=== PATIENT | female | born 1970 | race Two or more races ===

== ENCOUNTER 2022-01-25 15:01 | Emergency (ER) | payer OTHER ==
[~2022-01-25] VITALS: Ht 157.5 cm; Wt 72.6 kg
[2022-01-25] MEDS ORDERED: TYLENOL (16:13)
== END 2022-01-25 18:30 | disposition home or self-care (01) ==
LOC: ER 15:01
DX: U07.1 COVID-19 (principal); Z88.2 Allergy status to sulfonamides